=== PATIENT | male | born 1995 | race Hispanic/Latino ===

== ENCOUNTER 2021-04-02 16:21 | Emergency (ER) | payer OTHER ==
[2021-04-02] MEDS ORDERED: TETANUS,DIPH,PERTUSS(ACELL) VACCINE 0.5 ML SYRINGE IM ONE (16:22)
--- NOTE | 2021-04-02 16:26 | Event Note ---
ED Screening Note Date of service: 04/02/21 Time: 16:23 ED Screening Note: 25-year-old [id number] male patient presents to the emergency department with complaints of an injury to his left hand occurring earlier today. Patient states he was using an electric drill when he accidentally injured his hand as the drill bit was caught in his protective glove. Cannot recall last tetanus immunization. Of note, patient is currently anticipating in a substance abuse rehabilitation program and is requesting not to receive any narcotics. General: Awake, appropriately interactive, no acute distress. Neck: Supple. Full range of motion intact. Cardiovascular: Normal peripheral perfusion. Pulmonary: No respiratory distress. Patient is speaking normally without use of accessory muscles. Neurological: No facial asymmetry. Speech is clear. Follows commands. Patient is alert and oriented. Musculoskeletal: Pressure dressing was applied to the left hand by buyer assistant prior to medical screening exam; reported bleeding from left fifth finger and deformity to left fourth finger. Psych: Cooperative. Appropriate mood and affect. I have greeted and performed a focused rapid initial assessment of this patient. A comprehensive ED assessment and evaluation of the patient, analysis of all test results, and completion of the medical decision-making process will be conducted by additional ED providers. This initial assessment/diagnostic orders/clinical plan/treatment(s) is/are subject to change based on patients health status, clinical progression and re-assessment. Further treatment and workup at subsequent clinical provider's discretion. Patient/guardian urged not to elope from the ED as their condition may be serious if not clinically assessed and managed.
[2021-04-02 16:27] VITALS: BP 117/77
[2021-04-02] MEDS ORDERED: ACETAMINOPHEN 500 MG TAB PO ONE (17:06)
[2021-04-02] MEDS ORDERED: KETOROLAC 60 MG/2 ML INJ IM ONE (17:06)
--- NOTE | 2021-04-02 17:17 | Emergency Department Report ---
Upper Extremity - HPI Chief Complaint: Extremity Injury, Upper Stated Complaint: LEFT HAND INJURY Time Seen by Provider: 04/02/21 16:57 Upper Extremity: Left Ring Finger, Left Little Finger Occurred When: Today Severity: severe Symptoms: Yes Pain with Movement, Yes Deformity, Yes Limited Range of Movement, Yes Numbness, Yes Swelling, Yes Laceration or Abrasion, No Weakness, No Bruising/Ecchymosis Other History: 25 year old male presents to ED with c/o injury to left 4th and 5th fingers. Pt states he was using a drill at work and accidentally reached for the drill with his left hand while it was still in use and he states the drill bit caught his gloves and his fingers. He reports pain, deformity and numbness to the fourth finger and he also has pain laceration and numbness to the left fifth finger. He states that his tetanus is not up-to-date. He is right-hand dominant. ED Review of Systems ROS: Stated complaint: LEFT HAND INJURY Other details as noted in HPI Comment: All other systems reviewed and negative Constitutional: denies: chills, fever Eyes: denies: eye pain, eye discharge, vision change ENT: denies: ear pain, throat pain, dental pain, hearing loss, epistaxis, congestion Cardiovascular: denies: chest pain, palpitations Gastrointestinal: denies: abdominal pain, nausea, diarrhea Musculoskeletal: arthralgia Skin: other (laceration) Neurological: denies: headache, weakness, numbness, paresthesias, confusion, vertigo Psychiatric: denies: anxiety, depression, auditory hallucinations, visual hallucinations, homicidal thoughts, suicidal thoughts Hematological/Lymphatic: denies: easy bleeding, easy bruising ED Past Medical Hx - Past Medical History Previous Medical History?: No - Surgical History Additional Surgical History: Tonsilectomy - Social History Smoking Status: Current Every Day Smoker Substance Use Type: None - Medications Home Medications: Home Medications Medication Instructions Recorded Confirmed Last Taken Type Ketorolac [Toradol] 10 mg PO Q6H PRN #20 tablet 04/02/21 Unknown Rx cephALEXin [Keflex] 500 mg PO Q8HR #21 cap 04/02/21 Unknown Rx Upper Extremity Exam - Exam General: Vital signs noted. No distress. Alert and acting appropriately. Head and Torso: No HEENT Abnormality, No Neck Tenderness, No Chest/Lungs Abnormality, No Abdominal Tenderness, No Back Tenderness Shoulder Exam: Yes Normal Range of Motion in Shoulder, No Shoulder Tenderness, No Clavicle Tenderness, No Shoulder Deformity, No AC Joint Tenderness Elbow: Yes Normal Range of Motion in Elbow, No Elbow Tenderness, No Elbow Deformity Forearm: No Forearm Tenderness, No Forearm Deformity, No Pain with Pronation, No Pain with Supination Wrist: Yes Normal ROM in Wrist, No Wrist Tenderness, No Wrist Deformity, No Snuffbox Tenderness, No Pain with Axial Thumb Compression Hand: Yes Digit Tenderness (Left 4th finger with deformity noted at level of PIP joint; Left finger finger with lacteration to distal rivera finger and avulsion of posterior nail plate from posterio nail fold), Yes Digit(s) Deformity (Left 4th finger at level of PIP joint), No Normal ROM in Digit(s) (ROM of 4th finger reduced at leve of MCP, PIP and IP joints; ROM of PIP and DIP joint of left 5th finger reduced) CMS Exam: Yes Broken Skin (Patient has a posterior nail avulsion from the posterior nail fold to the left fourth finger measuring about 2 cm no apparent tendon injury no obvious bony injury; he also has a V-shaped flap laceration to the posterior distal aspect of the left fifth finger again no apparent bony or tendon injury), Yes Normal Distal Pulses, Yes Normal Capillary Refill, Yes Normal Distal Sensation ED Course Vital Signs 04/02/21 16:24 Temperature 98.4 F Pulse Rate 74 Respiratory 19 Rate Blood Pressure 117/77 O2 Sat by Pulse 99 Oximetry - Laceration /Wound Repair Left Finger Wound Location: upper extremity (Left 5th finger) Wound's Depth, Shape: irregular, flap, stellate, nail-avulsed, contused tissue Wound Explored: clean Irrigated w/ Saline (ccs): 100 Betadine Prep?: Yes Anesthesia: 1% Lidocaine Volume Anesthetic (ccs): 10 Wound Debrided: minimal Wound Repaired With: Steri-strips Suture Size/Type: 4:0, nylon Number of Sutures: 14 (Total 14 sutures) Sterile Dressing Applied?: Yes Progress: Pt had v shaped flap lac to distal rivera left 4th finger measuring about 5 cm-- 11 sutures He had posterior nail avulsion from the posterior nail fold measuring about 2 cm and this was tacked down with 3 sutures Patient tolerated procedure well without any complications. - Nerve Block Consent Obtained: verbal consent Time Out Performed: No Local Anesthetic Used: Lidocaine 1% Amount of anesthesia used: 7 Side: left Nerve Blocks: digital (Fourth and fifth finger) Procedure Successful: Yes Complications: none Patient Tolerated Procedure: well, no complications ED Medical Decision Making - Radiology Data Radiology results: report reviewed Patient: CAROL BECERRIL MR#: [id number] : 1995 Acct:[id number] Age/Sex: 25 / M ADM Date: 04/02/21 Loc: ED Attending Dr: Ordering Physician: JANE CHOWDHURY Date of Service: 04/02/21 Procedure(s): XR hand 3+V LT Accession Number(s): [id number] cc: JANE CHOWDHURY Fluoro Time In Minutes: LEFT HAND 4 VIEW(S) INDICATION / CLINICAL INFORMATION: trauma COMPARISON: None available. FINDINGS: BONES / JOINT(S): Displaced and angulated fracture through the midshaft of the small finger distal phalanx. There is dislocation of the ring finger PIP joint. No significant arthritis. SOFT TISSUES: Soft tissue swelling and edema surrounds the ring finger dislocation and small finger fracture. ADDITIONAL FINDINGS: None. Signer Name: Mitch Kwan MD Signed: 04/02/2021 5:15 PM Workstation Name: [id number] Transcribed By: CH Dictated By: MITCH KWAN Electronically Authenticated By: MITCH KWAN Signed Date/Time: 04/02/211714 DD/ 12 TD/TT: Patient: CAROL BECERRIL MR#: [id number] : 1995 Acct:[id number] Age/Sex: 25 / M ADM Date: 04/02/21 Loc: ED Attending Dr: Ordering Physician: VIRGINIA FORBES Date of Service: 04/02/21 Procedure(s): XR finger(s) 2+V LT Accession Number(s): [id number] cc: VIRGINIA FORBES Fluoro Time In Minutes: LEFT RING FINGER 3 VIEWS INDICATION / CLINICAL INFORMATION: post reduction 4th finger. COMPARISON: 04/02/2020 at 1643 hours FINDINGS: The dislocation of the ring finger has been relocated. Once again a displaced fracture of the distal phalanx of the little finger is seen Signer Name: Marco A Ward MD FACR Signed: 04/02/2021 7:21 PM Workstation Name: [id number] Transcribed By: MS Dictated By: Marco A Ward MD Electronically Authenticated By: Marco A Ward MD Signed Date/Time: 04/02/211920 DD/ 19 TD/TT: - Medical Decision Making Patient with an open fracture to his distal left fifth finger and a dislocated left fourth finger. Left fourth finger was relocated by me see procedure note for details and x-ray confirms relocation. Laceration repair to left fifth finger was done by me see procedure note for detail. Patient placed in aluminum finger splint to both fourth and fifth finger of the left hand. Patient given copies of his x-ray as well as CD copies of his x-ray because he was given strict instructions that he will need to follow-up with hand specialist no later than next week. Patient states that he lives in [facility] and would rather follow-up with an hand specialist. Patient instructed that he will also be given a prescription for antibiotics which she needs to start taking today. Patient requested not to be given any narcotics and so he will be given a prescription for Toradol for pain. Patient expressed understanding of all instructions and agree with plan. Patient was stable at time of discharge. Critical care attestation.: If time is entered above; I have spent that time in minutes in the direct care of this critically ill patient, excluding procedure time. ED Disposition Clinical Impression: Dislocated finger, Open fracture of finger Disposition: DC-01 TO HOME OR SELFCARE Is pt being admited?: No Does the pt Need Aspirin: No Condition: Stable Instructions: Finger or Thumb Dislocation, Finger Fracture, Adult, [id number] Additional Instructions: You have an open fracture to the distal aspect of your left fifth finger and you had a dislocation to your left fourth finger which was relocated here in the ER. Therefore it is important that you follow-up with the hand specialist or environmental safety specialist. There is a environmental safety specialist listed in your discharge instruction that you can follow-up with but if you need to follow-up with specialist closer to home in [facility], I recommend that you follow-up with the hand specialist. You can bring copies of the x-ray report as well as CDs with you to your appointments. Take the Toradol and antibiotics as prescribed. Do not remove the splint or get it wet until follow-up with the specialist. Return to the ER if any symptoms changes or worsens in any way. Prescriptions: cephALEXin [Keflex] 500 mg PO Q8HR #21 cap Ketorolac [Toradol] 10 mg PO Q6H PRN #20 tablet PRN Reason: Pain Referrals: LEIGHTON CANCHOLA MD [Staff Physician] - 3-5 Days Forms: Work/School Release Form(ED) Time of Disposition: 19:37
--- NOTE | 2021-04-02 17:19 | XRay Report ---
LEFT HAND 4 VIEW(S) INDICATION / CLINICAL INFORMATION: trauma COMPARISON: None available. FINDINGS: BONES / JOINT(S): Displaced and angulated fracture through the midshaft of the small finger distal ph alanx. There is dislocation of the ring finger PIP joint. No significant arthritis. SOFT TISSUES: Soft tissue swelling and edema surrounds the ring finger dislocation and small finger f racture. ADDITIONAL FINDINGS: None. Signer Name: Mitch Torres MD Signed: 04/02/2021 5:15 PM Workstation Name: [id number]
[2021-04-02] MEDS ORDERED: NEOMY 3.5 MG/BACIT 400 UNITS/POLY B 5000 UNITS/GM OINT PACKET TP ONE (18:38)
[2021-04-02] MEDS ORDERED: cephALEXin 500 MG CAP PO ONE (18:55)
--- NOTE | 2021-04-02 19:26 | XRay Report ---
LEFT RING FINGER 3 VIEWS INDICATION / CLINICAL INFORMATION: post reduction 4th finger. COMPARISON: 04/02/2020 at 1643 hours FINDINGS: The dislocation of the ring finger has been relocated. Once again a displaced fracture of the distal phalanx of the little finger is seen Signer Name: Marco A Ward MD FACR Signed: 04/02/2021 7:21 PM Workstation Name: [id number]
== END 2021-04-02 20:00 | disposition home or self-care (01) ==
LOC: ED 16:21
DX: S62.637B Displaced fracture of distal phalanx of left little finger, initial encounter for open fracture (principal); S63.295A Dislocation of distal interphalangeal joint of left ring finger, initial encounter; F17.200 Nicotine dependence, unspecified, uncomplicated; Z90.89 Acquired absence of other organs; Z79.899 Other long term (current) drug therapy; W22.8XXA Striking against or struck by other objects, initial encounter; Y93.89 Activity, other specified; Y92.89 Other specified places as the place of occurrence of the external cause; Y99.8 Other external cause status
CPT/HCPCS: 26770; 29130; 73130; 73140; 90471; 90715; 96372; 99283; A6250; J1885